=== PATIENT | female | born 1945 | race Caucasian/White ===

== ENCOUNTER → 2021-04-16 11:13 | Outpatient (CLI) | payer MEDICARE, SELFPAY ==
[2021-04-16 13:04] LABS: COVID19 -Nasal RAPID Negative (Negative)
== END ==
PROVIDERS: Referring Provider Internal Medicine; Visit Provider Internal Medicine
DX: Z20.822 Contact with and (suspected) exposure to COVID-19 (principal)
CPT/HCPCS: 87635; C9803

== ENCOUNTER → 2021-04-16 12:43 | Outpatient (CLI) | payer MEDICARE, SELFPAY ==
--- NOTE | 2021-04-22 09:18 | PM.PFT.1 ---
Pulmonary Function Test Referral & Results Date Patient Seen: 04/16/21 Requesting provider: Sy Dumont Indication: Cough Results: The spirometry demonstrates an FVC of 3.30 L which is 104% of predicted. The FEV1 was measured at 2.21 L which is 93% of predicted. The FEV1/FVC ratio was 67 which is 89% of predicted. Following the administration of bronchodilator there was no significant change. Lung volumes show an SVC of 3.57 L which is 117% of predicted. The diffusing capacity was measured at 20.69 which is 73% of predicted. No hemoglobin value was provided, so no correction for potential anemia could be made, if appropriate. The maximum voluntary ventilation was reduced Interpretation: This study demonstrates probably normal spirometry. There is a mild reduction diffusing capacity suggesting some element of disease at the capillary alveolar level unless patient is anemic as above Reduction in maximum voluntary ventilation without abnormalities in spirometry would suggest the presence of neuromuscular disease as well Clinical correlation suggested
== END ==
PROVIDERS: Referring Provider Student in an Organized Health Care Education/Training Program; Visit Provider Student in an Organized Health Care Education/Training Program
DX: R05 Cough (principal); Z20.822 Contact with and (suspected) exposure to COVID-19; Z87.891 Personal history of nicotine dependence; J98.8 Other specified respiratory disorders
CPT/HCPCS: 87635; 94060; 94726; 94729; C9803

== ENCOUNTER → 2022-12-17 09:48 | Outpatient (CLI) | payer MEDICARE, SELFPAY ==
--- NOTE | 2022-12-17 23:18 | DI.NM.S_ITS ---
DATE OF SERVICE: 12/17/2022 PROCEDURE PERFORMED: Exercise treadmill stress and rest myocardial perfusion imaging with gating to assess ejection fraction and regional wall motion. ORDERING PROVIDER: Sy Dumont MD INDICATIONS: The patient is a 77-year-old female with ischemic heart disease, who presents with exertional dyspnea. CARDIAC STRESS: The patient was able to exercise for 5 minutes, 11 seconds on a standard Henry protocol, suggesting average exercise capacity with an DEEP of - 2%, achieving 5.3 METS. She had a normal heart rate and blood pressure response to exercise, achieving a maximum heart rate of 144 BPM (101% of her predicted maximum). She had no chest discomfort or anginal symptoms. Her oxygen saturation remained at 96% at peak exercise. Her resting ECG shows sinus rhythm with normal ST segments. There were no significant ST-segment shifts or arrhythmias with stress. At 2 minutes 45 seconds of exercise, at 126 BPM, 25.9 mCi of technetium-99m Myoview was injected and she was imaged 20 minutes later using a gated SPECT acquisition protocol. Earlier in the day while at rest, she had been injected with 11.6 mCi of technetium-99m Myoview and imaged 20 minutes later, again using a gated SPECT acquisition protocol. FINDINGS: 1. Raw data. There is good myocardial tracer uptake. The lung/heart ratio is normal at 0.22. The TID ratio is normal at 0.91. 2. Quantitated gated SPECT: Post-stress ejection fraction is 88% without any focal wall motion abnormality. Resting ejection fraction is 78% with a low normal end-diastolic volume of 45 mL. 3. Myocardial perfusion imaging: Post stress supine images show a normal myocardial perfusion pattern without any perfusion defects, supported by normal perfusion imaging in the prone position. The resting images show an identical perfusion pattern without any areas of improvement. IMPRESSION: 1. Normal myocardial perfusion study. 2. No evidence for myocardial ischemia or previous myocardial infarction. 3. Normal left ventricular systolic function with relatively small left ventricular volumes, but no focal wall motion abnormality. 4. Average exercise capacity without angina or ECG evidence of ischemia. She had no arrhythmias and oxygen saturation remained normal throughout exercise. Mely Pearson - ELIAN/michael/ec doc#: [id number]/job#: [id number] dd: 12/17/2022 16:30:00 dt: 12/17/2022 22:51:00 DICTATING MD/COPIES TO: Godfrey Silva MD; Sy Dumont MD COPIES MNE: SANTO;
== END ==
PROVIDERS: PCP Student in an Organized Health Care Education/Training Program; Referring Provider Student in an Organized Health Care Education/Training Program; Visit Provider Student in an Organized Health Care Education/Training Program
DX: R06.09 Other forms of dyspnea (principal); I25.10 Atherosclerotic heart disease of native coronary artery without angina pectoris
CPT/HCPCS: 78452; 93017; A9502

== ENCOUNTER → 2025-01-24 07:46 | Outpatient (CLI) | payer MEDICARE, SELFPAY ==
--- NOTE | 2025-01-24 07:47 | DI.NM.S_ITS ---
PROCEDURE: NM ANA PERF SPECT SINGLE STUDY Resting myocardial perfusion SPECT, with gated imaging and ejection fraction RADIOPHARMACEUTICAL: 12.5 mCi 99m-Tc sestamibi intravenously. INDICATIONS: FAM TECHNIQUE: Radiopharmaceutical was injected at rest. SPECT images were obtained. SPECT myocardial perfusion images were displayed in short axis, horizontal long axis, and vertical long axis views. Gated images were reviewed using [employer] software. COMPARISON: None. FINDINGS: Raw data: There is good tracer uptake by the myocardium. No significant motion artifacts. Left ventricle function: Gated images demonstrate left ventricle wall thickening. No segmental wall motion abnormalities. No transient ischemic dilation. Left ventricle resting end-diastolic volume is 65mL. Left ventricle resting ejection fraction is 71%; normal values are above 45%. Myocardial perfusion: There is normal distribution of activity in the left and right ventricular myocardium at rest. IMPRESSION: Normal rest perfusion images with normal LV size, wall motion, and systolic function. Stress images not obtained as patient couldn't come back to do them. No change in rest images since the prior study dated 12/17/2022. Dictated by: Roland Guerrero MD on 02/13/2025 at 13:42 Approved by: Roland Guerrero MD on 02/13/2025 at 13:43
== END ==
PROVIDERS: PCP Student in an Organized Health Care Education/Training Program; Referring Provider Student in an Organized Health Care Education/Training Program; Visit Provider Student in an Organized Health Care Education/Training Program
DX: R06.09 Other forms of dyspnea (principal)
CPT/HCPCS: 78451; A9502